=== PATIENT | male | born 1930 | race Caucasian/White ===

== ENCOUNTER 2017-10-09 09:51 | Inpatient (IN) ==
[2017-10-09] MEDS ORDERED: SODIUM CHLORIDE 0.9% 1,000 ML IV STA (10:47)
[2017-10-09 11:46] LABS: Basophils # 0.1 10*3/uL (0.0-0.2); Basophils % 0.5 % (0.0-0.8); Eosinophils # 0.2 10*3/uL (0.0-0.87); Eosinophils % 2.5 % (0.00-10.9); Hematocrit 37.6 VOL% (42.0-52.0); Hemoglobin 12.8 GM/DL (14.0-18.0); Immature Granulocytes % 0.5 %; Immature Granulocytes Absolute 0.05 #; Lymphocytes # 1.6 10*3/uL (1.4-4.0); Lymphocytes % 17.4 % (21.2-54.2); Mean Corpuscular Hemoglobin 33 PG (27-34); Mean Corpuscular Volume 98.2 FL (87-102); Mean Platelet Volume 9.9 FL (9.6-12.0); Monocytes # 0.8 10*3/uL (0.11-0.8); Neutrophils # 6.6 10*3/uL (1.4-7.4); Neutrophils % 70.1 % (38.7-73.9); Platelet Count 237 T/CUMM (130-400); Red Blood Count 3.83 MC/CUMM (3.8-5.5); Red Cell Distribution Width 14.2 % (9.3-17.3); White Blood Count 9.4 T/CUMM (4-12)
[2017-10-09 12:07] LABS: Alanine Aminotransferase 16 U/L (16-61); Albumin 3.6 G/DL (3.4-5.0); Alkaline Phosphatase 77 U/L (45-117); Aspartate Amino Transferase 21 U/L (0-37); Blood Urea Nitrogen 59 MG/DL (7-18); Calcium 8.6 MG/DL (8.5-10.1); Glucose 128 MG/DL (74-106); Magnesium 2.3 MG/DL (1.8-2.4); Osmolality,Calculated 284.4 MOS/KG (273-304); Potassium 3.9 MMOL/L (3.5-5.1); Sodium 133 MMOL/L (136-145); Troponin I Only < 0.015 NG/ML (0.00-0.045)
[2017-10-09] MEDS ORDERED: ONDANSETRON 4 MG/2 ML VIAL IV PRN (12:49)
[2017-10-09] MEDS ORDERED: ACETAMINOPHEN 325 MG TABLET PO PRN (12:49)
[2017-10-09] MEDS ORDERED: guaiFENesin 200 MG/10 ML UDCUP PO PRN (12:51)
[2017-10-09] MEDS ORDERED: ALBUTEROL 2.5 MG/3 ML NEB RESP TX PRN (12:51)
[2017-10-09 12:55] LABS: Lactic Acid 1.8 MMOL/L (0.4-2.0)
[2017-10-09] MEDS: PRIMIDONE 50 MG TABLET PO SCH (17:06)
[2017-10-09 18:04] LABS: Apearance,Urine CLEAR (Clear); Bacteria,Urine Occasional /HPF (Few); Bilirubin,Urine Negative (Negative); Blood, Urine Negative (Negative); Glucose,Urine (UA) Negative (Negative); Ketones,Urine Negative (Negative); Mucus,Urine Occasional /LPF (Occasional); Nitrite,Urine Negative (Negative); Protein,Urine Negative; RBC,Urine <1 /HPF (0-4); Squamous Epithelial Cell,Urine Occasional /HPF (0-10); Urine Color Yellow (Yellow); Urine Specific Gravity 1.009 (1.001-1.035); Urine Urobilinogen < 2.0 EU/DL (0.2-1.0); WBC,Urine 1 /HPF (0-6)
[2017-10-09 18:10] LABS: Barbiturates Screen,Urine Positive (Negative); Benzodiazepines Screen,Urine Negative (Negative); Cannabinoid Screen,Urine Negative (Negative); Opiate Screen,Urine Negative (Negative); Phencyclidine Screen,Urine Negative (Negative)
[2017-10-09 18:26] LABS: Troponin I Only < 0.015 NG/ML (0.00-0.045)
[2017-10-09 22:33] LABS: Troponin I Only < 0.015 NG/ML (0.00-0.045)
[2017-10-10 07:20] LABS: Basophils % 0.7 % (0.0-0.8); Eosinophils # 0.3 10*3/uL (0.0-0.87); Eosinophils % 4.5 % (0.00-10.9); Hematocrit 35.2 VOL% (42.0-52.0); Hemoglobin 11.9 GM/DL (14.0-18.0); Immature Granulocytes % 0.3 %; Immature Granulocytes Absolute 0.02 #; Lymphocytes # 1.5 10*3/uL (1.4-4.0); Lymphocytes % 24.5 % (21.2-54.2); Mean Corpuscular HGB Conc 33.8 GM/DL (32-36); Mean Corpuscular Hemoglobin 33 PG (27-34); Mean Corpuscular Volume 97.5 FL (87-102); Mean Platelet Volume 10.1 FL (9.6-12.0); Monocytes # 0.5 10*3/uL (0.11-0.8); Monocytes % 7.5 % (1.7-12.7); Neutrophils # 3.8 10*3/uL (1.4-7.4); Neutrophils % 62.5 % (38.7-73.9); Platelet Count 228 T/CUMM (130-400); Red Blood Count 3.61 MC/CUMM (3.8-5.5)
[2017-10-10 07:51] LABS: Calcium 9.2 MG/DL (8.5-10.1); Magnesium 2.3 MG/DL (1.8-2.4); Osmolality,Calculated 285.8 MOS/KG (273-304); Potassium 3.7 MMOL/L (3.5-5.1)
[2017-10-10 07:57] LABS: Risk Ratio 4.09; VLDL CHOLESTEROL 45.8 MG/DL
[2017-10-10] MEDS: SODIUM CHLORIDE 0.9% 1,000 ML IV SCH ×2 (08:11→16:12)
[2017-10-10] MEDS: PANTOPRAZOLE 40 MG TABLET PO SCH (08:29)
[2017-10-10] MEDS: MULTIVITAMIN (CENTRUM) TABLET PO SCH (08:29)
[2017-10-10] MEDS: PRIMIDONE 50 MG TABLET PO SCH ×3 (08:30→16:13)
[2017-10-10] MEDS: ASPIRIN EC 81 MG TABLET PO SCH (08:30)
[2017-10-10] MEDS ORDERED: ZINC OXIDE 16% PASTE 57 GM TUBE TOP PRN (14:37)
[2017-10-10] MEDS: ASCORBIC ACID 500 MG TABLET PO SCH ×2 (16:12→21:26)
[2017-10-11] MEDS: SODIUM CHLORIDE 0.9% 1,000 ML IV SCH ×2 (02:37→11:08)
[2017-10-11 06:29] LABS: Basophils # 0.1 10*3/uL (0.0-0.2); Basophils % 1.1 % (0.0-0.8); Eosinophils # 0.3 10*3/uL (0.0-0.87); Eosinophils % 5.3 % (0.00-10.9); Hematocrit 33.2 VOL% (42.0-52.0); Hemoglobin 11.5 GM/DL (14.0-18.0); Immature Granulocytes % 0.3 %; Immature Granulocytes Absolute 0.02 #; Lymphocytes # 1.5 10*3/uL (1.4-4.0); Lymphocytes % 22.7 % (21.2-54.2); Mean Corpuscular HGB Conc 34.6 GM/DL (32-36); Mean Corpuscular Hemoglobin 33 PG (27-34); Mean Corpuscular Volume 95.7 FL (87-102); Mean Platelet Volume 9.6 FL (9.6-12.0); Monocytes # 0.6 10*3/uL (0.11-0.8); Neutrophils % 61.6 % (38.7-73.9); Platelet Count 220 T/CUMM (130-400); Red Blood Count 3.47 MC/CUMM (3.8-5.5); Red Cell Distribution Width 13.9 % (9.3-17.3); White Blood Count 6.4 T/CUMM (4-12)
[2017-10-11 07:05] LABS: Calcium 8.9 MG/DL (8.5-10.1); Osmolality,Calculated 282.4 MOS/KG (273-304); Potassium 3.8 MMOL/L (3.5-5.1)
[2017-10-11 07:52] VITALS: BP 144/70
[2017-10-11] MEDS: PRIMIDONE 50 MG TABLET PO SCH (10:00)
[2017-10-11] MEDS: ASCORBIC ACID 500 MG TABLET PO SCH (10:00)
[2017-10-11] MEDS: PANTOPRAZOLE 40 MG TABLET PO SCH (10:00)
[2017-10-11] MEDS: MULTIVITAMIN (CENTRUM) TABLET PO SCH (10:00)
[2017-10-11] MEDS: ASPIRIN EC 81 MG TABLET PO SCH (10:00)
== END 2017-10-11 11:17 | DRG 312 ==
LOC: EDUNIT# → EDBD → N.ED 09:51 → N.EDINP 12:29 → N.5E 16:29

== ENCOUNTER 2018-12-07 18:18 | Inpatient (IN) ==
[2018-12-07] MEDS ORDERED: SODIUM CHLORIDE 0.9% 1,000 ML IV STA (18:46)
[2018-12-07 20:26] LABS: Apearance,Urine CLOUDY (Clear); Bilirubin,Urine Negative (Negative); Blood, Urine Small mg/dL (Negative); Glucose,Urine (UA) Negative (Negative); Ketones,Urine 5 mg/dL (Negative); Nitrite,Urine Negative (Negative); Protein,Urine 30 MG/DL; RBC,Urine 34 /HPF (0-4); Urine Color Amber (Yellow); Urine Specific Gravity 1.015 (1.001-1.035); Urine Urobilinogen < 2.0 EU/DL (0.2-1.0); WBC,Urine 1571 /HPF (0-6)
[2018-12-07 20:30] LABS: Basophils % 0.4 % (0.0-0.8); Eosinophils # 0.1 10*3/uL (0.0-0.87); Eosinophils % 1.2 % (0.00-10.9); Hematocrit 37.4 VOL% (42.0-52.0); Hemoglobin 12.1 GM/DL (14.0-18.0); Immature Granulocytes % 0.5 %; Immature Granulocytes Absolute 0.05 #; Lymphocytes # 1.4 10*3/uL (1.4-4.0); Lymphocytes % 14.6 % (21.2-54.2); Mean Corpuscular HGB Conc 32.4 GM/DL (32-36); Mean Corpuscular Hemoglobin 33 PG (27-34); Mean Corpuscular Volume 101.6 FL (87-102); Mean Platelet Volume 9.4 FL (9.6-12.0); Monocytes # 0.7 10*3/uL (0.11-0.8); Monocytes % 7.6 % (1.7-12.7); Neutrophils % 75.7 % (38.7-73.9); Platelet Count 298 T/CUMM (130-400); Red Blood Count 3.68 MC/CUMM (3.8-5.5); Red Cell Distribution Width 15.3 % (9.3-17.3); White Blood Count 9.3 T/CUMM (4-12)
[2018-12-07 20:53] LABS: INR 1.1; PT Patient Result 11.6 SECS
[2018-12-07 20:54] LABS: Alanine Aminotransferase 26 U/L (16-61); Albumin 3.4 G/DL (3.4-5.0); Alkaline Phosphatase 87 U/L (45-117); Aspartate Amino Transferase 20 U/L (0-37); Blood Urea Nitrogen 46 MG/DL (7-18); Calcium 8.7 MG/DL (8.5-10.1); Glucose 107 MG/DL (74-106); Potassium 5.5 MMOL/L (3.5-5.1); Sodium 136 MMOL/L (136-145); Troponin I < 0.015 NG/ML (0.00-0.045)
[2018-12-07] MEDS ORDERED: PIPERACILLIN/TAZOBACTAM 3,375 MG in SODIUM CHLORIDE 0.9% 100 ML IV STA (20:56)
[2018-12-07] MEDS ORDERED: VANCOMYCIN INJ 1,000 MG in SODIUM CHLORIDE 0.9% 250 ML IV STA (20:56)
[2018-12-07] MEDS ORDERED: PROMETHAZINE 25 MG/1 ML VIAL IM PRN (22:14)
[2018-12-07] MEDS ORDERED: IBUPROFEN 600 MG TABLET PO PRN (22:14)
[2018-12-07] MEDS ORDERED: ACETAMINOPHEN 325 MG TABLET PO PRN (22:14)
[2018-12-07] MEDS ORDERED: ONDANSETRON 4 MG/2 ML VIAL IV PRN (22:14)
[2018-12-08 05:42] LABS: Basophils % 0.4 % (0.0-0.8); Eosinophils # 0.2 10*3/uL (0.0-0.87); Eosinophils % 2.4 % (0.00-10.9); Hemoglobin 11.3 GM/DL (14.0-18.0); Immature Granulocytes % 0.5 %; Immature Granulocytes Absolute 0.04 #; Lymphocytes # 1.2 10*3/uL (1.4-4.0); Lymphocytes % 15.1 % (21.2-54.2); Mean Corpuscular HGB Conc 32.3 GM/DL (32-36); Mean Corpuscular Hemoglobin 33 PG (27-34); Mean Corpuscular Volume 102.6 FL (87-102); Mean Platelet Volume 9.5 FL (9.6-12.0); Monocytes # 0.5 10*3/uL (0.11-0.8); Monocytes % 6.8 % (1.7-12.7); Neutrophils # 5.7 10*3/uL (1.4-7.4); Neutrophils % 74.8 % (38.7-73.9); Platelet Count 266 T/CUMM (130-400); Red Blood Count 3.41 MC/CUMM (3.8-5.5); Red Cell Distribution Width 15.3 % (9.3-17.3); White Blood Count 7.6 T/CUMM (4-12)
[2018-12-08 06:16] LABS: Bilirubin,Total 0.7 MG/DL (0.2-1.0); Calcium 8.6 MG/DL (8.5-10.1); Osmolality,Calculated 286.7 MOS/KG (273-304); Potassium 4.9 MMOL/L (3.5-5.1); Total Protein 7.4 G/DL (6.4-8.3)
[2018-12-08] MEDS: PANTOPRAZOLE 40 MG TABLET PO SCH (09:03)
[2018-12-08] MEDS: DOCUSATE SODIUM 100 MG CAPSULE PO SCH ×2 (09:03→22:13)
[2018-12-08] MEDS ORDERED: LEVOFLOXACIN INJ 750 MG in PREMIX 1 EACH IV SCH (10:30)
[2018-12-08] MEDS: SODIUM CHLORIDE 0.9% 1,000 ML IV SCH ×4 (10:51→20:20)
[2018-12-08] MEDS ORDERED: ALBUTEROL 2.5 MG/3 ML NEB RESP TX PRN (10:55)
[2018-12-08] MEDS ORDERED: PHENYLEPHRINE TOP PRN (10:55)
[2018-12-08] MEDS ORDERED: MELATONIN 3 MG TABLET PO PRN (10:55)
[2018-12-08] MEDS ORDERED: WITCH HAZEL TOP PRN (10:55)
[2018-12-08] MEDS ORDERED: FLUTICASONE PROPIONATE TOP PRN (10:55)
[2018-12-08] MEDS: DONEPEZIL 5 MG TABLET PO SCH (12:15)
[2018-12-08] MEDS: PRIMIDONE 50 MG TABLET PO SCH ×2 (14:30→18:14)
[2018-12-08] MEDS: FUROSEMIDE 40 MG TABLET PO SCH (16:31)
[2018-12-08] MEDS: ENOXAPARIN 30 MG/0.3 ML SYRINGE SUBCUT SCH ×2 (23:34)
[2018-12-09] MEDS: SODIUM CHLORIDE 0.9% 1,000 ML IV SCH ×3 (06:31→21:24)
[2018-12-09] MEDS: FUROSEMIDE 40 MG TABLET PO SCH (08:16)
[2018-12-09] MEDS: MULTIVITAMIN (CENTRUM) TABLET PO SCH (09:11)
[2018-12-09] MEDS: LISINOPRIL 10 MG TABLET PO SCH (09:11)
[2018-12-09] MEDS: DONEPEZIL 5 MG TABLET PO SCH (09:11)
[2018-12-09] MEDS: DOCUSATE SODIUM 100 MG CAPSULE PO SCH ×2 (09:11→21:22)
[2018-12-09] MEDS: PANTOPRAZOLE 40 MG TABLET PO SCH (09:11)
[2018-12-09] MEDS: TERBINAFINE 250 MG TABLET PO SCH (09:11)
[2018-12-09] MEDS: LORATADINE 10 MG TABLET PO SCH (09:11)
[2018-12-09] MEDS: PRIMIDONE 50 MG TABLET PO SCH ×3 (09:11→17:27)
[2018-12-09] MEDS: METOPROLOL SUCCINATE XL 25 MG TABLET PO SCH (09:12)
[2018-12-09] MEDS: FUROSEMIDE 20 MG TABLET PO SCH (16:28)
[2018-12-09] MEDS: cefTRIAXone 1,000 MG in SYRINGE 1 EACH IV SCH (16:28)
[2018-12-09] MEDS: ENOXAPARIN 30 MG/0.3 ML SYRINGE SUBCUT SCH (21:37)
[2018-12-10] MEDS: SODIUM CHLORIDE 0.9% 1,000 ML IV SCH ×5 (02:41→21:59)
[2018-12-10] MEDS: PRIMIDONE 50 MG TABLET PO SCH ×3 (08:59→21:19)
[2018-12-10] MEDS: MULTIVITAMIN (CENTRUM) TABLET PO SCH (08:59)
[2018-12-10] MEDS: DONEPEZIL 5 MG TABLET PO SCH (08:59)
[2018-12-10] MEDS: DOCUSATE SODIUM 100 MG CAPSULE PO SCH ×2 (08:59→21:05)
[2018-12-10] MEDS: PANTOPRAZOLE 40 MG TABLET PO SCH (09:00)
[2018-12-10] MEDS: LORATADINE 10 MG TABLET PO SCH (09:00)
[2018-12-10] MEDS: FUROSEMIDE 20 MG TABLET PO SCH ×2 (09:00→18:17)
[2018-12-10] MEDS: METOPROLOL SUCCINATE XL 25 MG TABLET PO SCH (09:04)
[2018-12-10] MEDS: LISINOPRIL 10 MG TABLET PO SCH (09:06)
[2018-12-10] MEDS: TERBINAFINE 250 MG TABLET PO SCH (09:07)
[2018-12-10] MEDS: DESITIN 4OZ/NYSTATIN 15 GRAM MIXTURE PASTE TOP SCH ×2 (16:30→21:06)
[2018-12-10] MEDS: cefTRIAXone 1,000 MG in SYRINGE 1 EACH IV SCH (18:20)
[2018-12-10] MEDS: ENOXAPARIN 30 MG/0.3 ML SYRINGE SUBCUT SCH (21:57)
[2018-12-11 04:31] LABS: Basophils % 0.5 % (0.0-0.8); Eosinophils # 0.4 10*3/uL (0.0-0.87); Eosinophils % 6.2 % (0.00-10.9); Hematocrit 32.2 VOL% (42.0-52.0); Hemoglobin 10.7 GM/DL (14.0-18.0); Immature Granulocytes % 0.3 %; Immature Granulocytes Absolute 0.02 #; Lymphocytes # 0.9 10*3/uL (1.4-4.0); Lymphocytes % 15.2 % (21.2-54.2); Mean Corpuscular HGB Conc 33.2 GM/DL (32-36); Mean Corpuscular Hemoglobin 33 PG (27-34); Mean Corpuscular Volume 99.4 FL (87-102); Monocytes # 0.3 10*3/uL (0.11-0.8); Monocytes % 5.5 % (1.7-12.7); Neutrophils # 4.2 10*3/uL (1.4-7.4); Neutrophils % 72.3 % (38.7-73.9); Platelet Count 260 T/CUMM (130-400); Red Blood Count 3.24 MC/CUMM (3.8-5.5); Red Cell Distribution Width 14.6 % (9.3-17.3); White Blood Count 5.8 T/CUMM (4-12)
[2018-12-11 05:02] LABS: Calcium 8.1 MG/DL (8.5-10.1); Osmolality,Calculated 283.1 MOS/KG (273-304); Potassium 3.6 MMOL/L (3.5-5.1)
[2018-12-11] MEDS ORDERED: MAGNESIUM SULF RIDER 1 GM in PREMIX 1 EACH IV ONE (07:20)
[2018-12-11] MEDS ORDERED: POTASSIUM CHLORIDE 20 MEQ TABLET PO ONE (07:49)
[2018-12-11] MEDS: PRIMIDONE 50 MG TABLET PO SCH (08:51)
[2018-12-11] MEDS: FUROSEMIDE 20 MG TABLET PO SCH (08:52)
[2018-12-11] MEDS: DONEPEZIL 5 MG TABLET PO SCH (08:52)
[2018-12-11] MEDS: DOCUSATE SODIUM 100 MG CAPSULE PO SCH (08:52)
[2018-12-11] MEDS: LISINOPRIL 10 MG TABLET PO SCH (08:52)
[2018-12-11] MEDS: METOPROLOL SUCCINATE XL 25 MG TABLET PO SCH (08:52)
[2018-12-11] MEDS: LORATADINE 10 MG TABLET PO SCH (08:52)
[2018-12-11] MEDS: MULTIVITAMIN (CENTRUM) TABLET PO SCH (08:52)
[2018-12-11] MEDS: PANTOPRAZOLE 40 MG TABLET PO SCH (08:53)
[2018-12-11] MEDS: DESITIN 4OZ/NYSTATIN 15 GRAM MIXTURE PASTE TOP SCH (08:53)
[2018-12-11] MEDS ORDERED: MAGNESIUM CHLORIDE 64 MG TABLET PO ONE (08:53)
[2018-12-11] MEDS: SODIUM CHLORIDE 0.9% 1,000 ML IV SCH (09:24)
[2018-12-11] MEDS: TERBINAFINE 250 MG TABLET PO SCH (09:24)
[2018-12-11 11:20] VITALS: BP 129/61
[2018-12-11] MEDS ORDERED: ENOXAPARIN 40 MG/0.4 ML SYRINGE SUBCUT SCH (21:00)
== END 2018-12-11 12:25 | DRG 689 ==
LOC: EDUNIT# → EDBD → N.ED 18:18 → N.EDINP 22:14 → N.CC 12-08 01:29 → N.3E 12-09 18:33
PROVIDERS: ADMIT Family Medicine; ATTEND Family Medicine